=== PATIENT | female | born 1955 | race Caucasian/White ===

== ENCOUNTER 2022-02-05 17:47 | Emergency (ER) | payer OTHER ==
[~2022-02-05] VITALS: Ht 165.1 cm; Wt 85.7 kg
[2022-02-05 17:55] VITALS: BP_SYST 173
--- NOTE | 2022-02-05 18:00 | NUR ---
Patient triaged and placed in waiting room. VSS and patient appears in no acute distress at this time. Accompanied by SELF, awaiting available bed, and MD notified of need for MSE.
--- NOTE | 2022-02-05 19:13 | NUR ---
Patient to ER bed 5 to gown for evaluation. Side rails up. Report given to Antonella MOORE.
--- NOTE | 2022-02-05 19:29 | NUR ---
Pt ambulatory with cane to ED with c/o L side hip pain that radiates down to knee and foot. Pain increased while walking. Pt reports she had a fall x1 year ago and has chronic pain, but that pain has worsened throughout the past couple months and OTC medication is no longer effective.
--- NOTE | 2022-02-05 19:34 | NUR ---
MD Mosher at bedside examining patient.
[2022-02-05] MEDS ORDERED: HYDR-3927 PO (20:20)
[2022-02-05] MEDS ORDERED: PRED20TA PO (20:21)
--- NOTE | 2022-02-05 20:29 | NUR ---
Patient given written and verbal discharge instructions and verbalizes understanding. ER MD Mosher discussed with patient the results. Patient in stable condition. ID arm band removed. Rx of [place] and Prednisone sent to pharmacy of choice. Patient educated on pain management and to follow up with PMD. Opportunity for questions provided and answered. Medication side effect fact sheet provided.
[2022-02-05 20:33] VITALS: BP_SYST 141
== END 2022-02-05 20:33 | disposition home or self-care (01) ==
LOC: SED 17:47
DX: M54.32 Sciatica, left side (principal); M54.50 Low back pain, unspecified; M79.662 Pain in left lower leg; Z79.899 Other long term (current) drug therapy
CPT/HCPCS: 99282